=== PATIENT | female | born 1975 | race Caucasian/White ===

== ENCOUNTER → 2020-12-20 | Outpatient (CLI) | payer BC ==
[~2020-12-20] MED LIST: NO HOME MEDICATIONS; PROTONIX40 MG PO
== END ==
LOC: MC.RAD 08:23
DX: N60.01 Solitary cyst of right breast (principal)

== ENCOUNTER 2023-09-18 15:23 | Emergency (ER) | payer OTHER ==
[~2023-09-18] VITALS: Ht 167.6 cm; Wt 110.9 kg
[2023-09-18 15:31] VITALS: TEMP 98.2
[2023-09-18 17:11] LABS: BASO # 0.1 K/mm3 (0.0-0.2); BASO % 0.7 % (0.0-2.0); EOS # 0.2 K/mm3 (0.0-0.7); EOS % 2.4 % (0.0-4.0); GRAN # 5.1 K/mm3 (1.4-6.5); GRAN % 67.2 % (42.2-75.2); HEMATOCRIT 41.1 % (37.0-47.0); HEMOGLOBIN 12.7 g/dl (12.5-16.0); LYMPH # 1.7 K/mm3 (1.2-3.4); LYMPH % 22.2 % (20.0-51.0); MEAN CELL VOLUME 81 fl (80.0-100.0); MEAN CORPUSCULAR HEMOGLOBIN 25 pg (27-31); MEAN CORPUSCULAR HGB CONC 31 g/dl (33.0-37.0); MEAN PLATELET VOLUME 10.2 fl (7.4-10.4); MONO # 0.5 K/mm3 (0.1-0.6); MONO % 7.1 % (1.7-9.3); PLATELET COUNT 291 K/mm3 (130-400); RED BLOOD COUNT 5.08 M/mm3 (4.10-5.30); REDCELL DISTRIBUTION WIDTH-CV 14.6 % (11.5-14.5)
[2023-09-18] MEDS ORDERED: Ondansetron 4 MG/2 ML VIAL IV ONE (17:15)
[2023-09-18] MEDS ORDERED: HYDROmorphone 0.5 MG/0.5 ML SYRINGE IV ONE (17:15)
[2023-09-18] MEDS ORDERED: NS 1,000 ML IV ONE (17:15)
[2023-09-18 17:18] LABS: COLLECTION METHOD CLEAN CATCH
[2023-09-18 17:28] LABS: URINE APPEARANCE CLEAR (CLEAR/HAZY); URINE BLOOD 1+ (NEGATIVE); URINE COLOR YELLOW (YELLOW); URINE GLUCOSE NEGATIVE (NEGATIVE); URINE KETONE NEGATIVE (NEGATIVE); URINE NITRATE NEGATIVE (NEGATIVE); URINE PROTEIN(semi-quant) NEGATIVE (NEGATIVE); URINE UROBILINOGEN 0.2 E.U/dL (0.2-1.0)
[2023-09-18 17:37] LABS: ALBUMIN 4.1 g/dL (3.5-5.0); BILIRUBIN,TOTAL 0.4 mg/dL (0.2-1.2); CALCIUM 9.4 mg/dL (8.4-10.2); CREATININE, serum 0.74 mg/dL (0.57-1.11); POTASSIUM 3.8 mEq/L (3.5-4.5); TOTAL PROTEIN 7.8 g/dl (6.2-8.1)
[2023-09-18] MEDS ORDERED: Home HYDROcodone/Acetaminophen 7.5/325 MG #4 TABS/PACK PO ONE (19:00)
[2023-09-18] MEDS ORDERED: Ketorolac 30 MG/ML VIAL IV ONE (19:00)
[2023-09-18] MEDS ORDERED: NORCO 325 MG-51 TAB PO (19:10)
[2023-09-18] MEDS ORDERED: ZOFRAN ODT4 MG PO (19:10)
[2023-09-18 19:15] VITALS: BP 148/75; PULSE 68
== END 2023-09-18 19:15 | disposition home or self-care (01) ==
LOC: COL.ER 15:23
PROVIDERS: Emergency Medicine
DX: R10.11 Right upper quadrant pain (principal); R11.0 Nausea
CPT/HCPCS: J1170; J1885; J2405; J7030

== ENCOUNTER 2023-09-29 09:29 | Day surgery (SDC) | payer OTHER ==
[~2023-09-29] VITALS: Ht 167.6 cm; Wt 109.3 kg
[2023-09-29] VITALS (7 sets, daily range): BP systolic 125–142; BP diastolic 56–87; PULSE 50–65; TEMP 97.1–97.6
[~2023-09-29 09:29] MED LIST changes: +Famotidine 20 MG TAB PO SCH; +LR 1,000 ML IV SCH; +NORCO 325 MG-51 TAB PO; +Scopolamine 1 MG Delivered 3-Day PATCH TD SCH; +ZOFRAN ODT4 MG PO
[2023-09-29] MEDS ORDERED: INDERAL LA160 MG PO (10:10)
[2023-09-29] MEDS ORDERED: SINGULAIR 110 MG/TAB PO (10:11)
[2023-09-29] MEDS ORDERED: VITAMINC1000TA (10:12)
[2023-09-29] MEDS ORDERED: ASPIRIN E.C. 8181 MG PO (10:12)
[2023-09-29] MEDS ORDERED: FERROUS GL325 MG/TAB (10:13)
[2023-09-29] MEDS ORDERED: TYLENOL 500MG500 MG PO (10:14)
[2023-09-29] MEDS ORDERED: OMEGA-3 1000 MG1 CAP PO (10:14)
[2023-09-29] MEDS ORDERED: Rocuronium 50 MG/5 ML Multi-Dose VIAL ONE ×2 (11:12→11:17)
[2023-09-29] MEDS ORDERED: Succinylcholine PF 200 MG/10 ML SYRINGE IV ONE (11:17)
[2023-09-29] MEDS ORDERED: fentaNYL 50 MCG/ML 5 ML VIAL ONE (11:17)
[2023-09-29] MEDS ORDERED: Midazolam 2 MG/2 ML VIAL ONE (11:17)
[2023-09-29] MEDS ORDERED: Ondansetron 4 MG/2 ML VIAL ONE (11:22)
[2023-09-29] MEDS ORDERED: Ketorolac 30 MG/ML VIAL ONE (11:22)
[2023-09-29] MEDS ORDERED: NS 20 ML IV ONE (11:22)
[2023-09-29] MEDS ORDERED: dexAMETHasone 10 MG/ML VIAL ONE (11:22)
[2023-09-29] MEDS ORDERED: Glycopyrrolate 0.2 MG/ML 1 ML VIAL ONE (11:22)
[2023-09-29] MEDS ORDERED: NORCO 325 MG-51 TAB PO (12:36)
[2023-09-29] MEDS ORDERED: Morphine 4 MG/ML VIAL IV PRN (12:45)
[2023-09-29] MEDS ORDERED: Ondansetron 4 MG/2 ML VIAL IV PRN ×2 (12:45→13:00)
[2023-09-29] MEDS ORDERED: hydrALAZINE 20 MG/ML 1 ML VIAL IV PRN (13:00)
[2023-09-29] MEDS ORDERED: fentaNYL 50 MCG/ML 1 ML SYRINGE/VIAL [PACU/SDC ONLY] IV PRN (13:00)
[2023-09-29] MEDS ORDERED: HYDROmorphone 1 MG/1 ML SYRINGE [PACU/SDC ONLY] IV PRN (13:00)
--- NOTE | 2023-09-29 15:35 | NUR ---
1320-PT TO BAY 3 PER CART FROM PACU. REPORT RECEIVED. VS OBTAINED. CALL LIGHT WITHIN REACH. PT STATES SHE HAS MILD NAUSEA. DENIES ANY NEEDS AT THIS TIME. 1335-PT RESTING. DENIES ANY NEEDS. 1350-PT RESTING. 1410-PT TOLERATING WATER AND PUDDING. 1415-PT RATES PAIN AT 5/10. NORCO 1 TAB GIVEN AT THIS TIME. 1430-PT C/O NAUSEA. 1435-ZOFRAN 4 MG IV GIVEN. 1500-PT STATES NAUSEA HAS DECREASED. 1505-DISCHARGE EDUCATIO COMPLETED WITH PT AND HER . VERBALIZED UNDERSTANDING OF HOME AND FOLLOW UP CARE. ALL QUESTIONS ANSWERED. DISCHARGE PAPERWORK GIVEN TO PT. 1510-IV DC'D AT THIS TIME. 1515-PT ABLE TO DRESS SELF WITHOUT ASSISTANCE. PT AMBULATED TO RESTROOM WITHOUT DIFFICULTY AND VOIDED. 1535-PT OFF UNIT PER WHEELCHAIR. PT DISCHARGED TO HOME WITH HER PER PERSONAL VEHICLE.
== END 2023-09-29 15:35 | disposition home or self-care (01) ==
LOC: SDCO 09:29
DX: K80.10 Calculus of gallbladder with chronic cholecystitis without obstruction (principal)
CPT/HCPCS: J0690; J1100; J1885; J2250; J2405; J2704; J3010; J7120